=== PATIENT | male | born 1985 | race Caucasian/White ===

== ENCOUNTER 2019-09-08 14:15 | Emergency (ER) | payer BC, MEDICAID ==
[2019-09-08] MEDS ORDERED: Ketorolac 60 MG/2 ML SDV IM ONE (15:38)
--- NOTE | 2019-09-08 16:02 | EDM.PDOC ---
ED HPI GENERAL MEDICAL PROBLEM - General Chief Complaint: Back Pain or Injury Stated Complaint: BACK PAIN Time Seen by Provider: 09/08/19 15:59 Source of Information: Reports: Patient History Limitations: Reports: No Limitations - History of Present Illness INITIAL COMMENTS - FREE TEXT/NARRATIVE: HISTORY AND PHYSICAL: History of present illness: Patient is a 34-year-old male who presents to the emergency room today with complaints of low lumbar back pain. He states on Friday he was bending over to pick something up the ground when he felt sudden sharp pain to the low lumbar back region. He states the pain has progressively gotten worse and is more bothersome when having to change positions. Pain does radiate to the left gluteus and posterior thigh. Offers no systemic complaints at this time. Denies any GI or symptoms. Review of systems: As per history of present illness and below otherwise all systems reviewed and negative. Past medical history: As per history of present illness and as reviewed below otherwise noncontributory. Surgical history: As per history of present illness and as reviewed below otherwise noncontributory. Social history: See social history for further information Family history: As per history of present illness and as reviewed below otherwise noncontributory. Physical exam: General: Well-developed and well-nourished 34-year-old male. Alert and oriented. Nontoxic appearing and in no acute distress. HEENT: Atraumatic, normocephalic, pupils equal and reactive bilaterally, negative for conjunctival pallor or scleral icterus, mucous membranes moist, trachea midline. No drooling or trismus noted. No meningeal signs. No hot potato voice noted. Lungs: Clear to auscultation, breath sounds equal bilaterally, chest nontender. Heart: S1S2, regular rate and rhythm without overt murmur Abdomen: Soft, nondistended, nontender. Negative for masses. Negative for costovertebral tenderness. Pelvis is stable and nontender. C-spine/Back: No pinpoint vertebral tenderness upon palpation. No crepitus, step -offs or obvious deformities. Patient is ambulatory into the emergency room without difficulty or deficit. Able to rock back on heels and walk on toes. Denies any urinary or fecal incontinence. Denies any numbness, tingling or saddle paresthesia. Skin: Intact, warm, dry. No lesions or rashes noted. Extremities: Atraumatic, moves all extremities per self without difficulty or deficits, negative for cords or calf pain. Neurovascular unremarkable. Neuro: Awake, alert, oriented. Cranial nerves II through XII unremarkable. Cerebellum unremarkable. Motor and sensory unremarkable throughout. Exam nonfocal. Notes: X-ray shows mild disc space narrowing at L5-S1. Otherwise unremarkable. Medication and supportive care measures were reviewed and discussed. Voices understanding and is agreeable to plan of care. Denies any further questions or concerns at this time. Diagnostics: Lumbar x-ray Therapeutics: Toradol Prescription: Diclofenac and Flexeril Impression: Lumbago Plan: 1. The medication you received today does cause drowsiness, so do not drive for the remaining day 2. When resting please lay on a flat firm surface. Limit your immobility to prevent muscle stiffness. Get up to ambulate/move around/gentle stretching multiple times throughout the day. May alternate heat and ice to the painful areas 3. Tylenol as needed for back pain. Otherwise take the prescribed Flexeril and diclofenac as directed. Diclofenac is an anti-inflammatory so do not take any additional NSAIDs with this medication, such as ibuprofen or Aleve. Flexeril as a muscle relaxant, this medication may cause drowsiness a do not take it will driving her needing to be functioning outside of the house. 4. Please follow-up with your primary care provider as we discussed. Return to the ED as needed and as discussed. Definitive disposition and diagnosis as appropriate pending reevaluation and review of above. lower back Pain Score (Numeric/FACES): 5 - Related Data Allergies Allergy/AdvReac Type Severity Reaction Status Date / Time bee pollen Allergy Difficulty Verified 09/08/19 15:13 Breathing cat dander Allergy Sneezing Verified 09/08/19 15:13 Home Meds: Home Meds . [No Known Home Meds] 09/08/19 [History] Past Medical History - Infectious Disease History Infectious Disease History: Reports: Chicken Pox - Past Surgical History GI Surgical History: Reports: Hernia, Inguinal Social & Family History - Family History Family Medical History: Noncontributory - Tobacco Use Smoking Status *Q: Never Smoker - Recreational Drug Use Recreational Drug Use: No ED ROS GENERAL - Review of Systems Review Of Systems: Comprehensive ROS is negative, except as noted in HPI. ED EXAM,LOWER BACK PAIN/INJURY - Physical Exam Exam: See Below (See dictation) Course - Vital Signs Last Recorded V/S: Last Vital Signs Temp 97.9 F 09/08/19 15:10 Pulse 102 H 09/08/19 15:10 Resp 18 09/08/19 15:10 BP 145/77 H 09/08/19 15:10 Pulse Ox 95 09/08/19 15:10 - Orders/Labs/Meds Meds: Medications Discontinued Medications Generic Name Dose Route Start Last Admin Trade Name Kandace PRN Reason Stop Dose Admin Ketorolac Tromethamine 60 mg 09/08/19 15:38 Toradol IM 09/08/19 15:39 ONETIME ONE Departure - Departure Time of Disposition: 16:20 Disposition: Home, Self-Care 01 Clinical Impression: Lumbago with sciatica, left side Qualifiers: Chronicity: acute Back pain laterality: left Qualified Code(s): M54.42 - Lumbago with sciatica, left side - Discharge Information Instructions: Sciatica, [id number] Referrals: Kimberly Bowman MD [Primary Care Provider] - Forms: ED Department Discharge Additional Instructions: The following information is given to patients seen in the emergency department who are being discharged to home. This information is to outline your options for follow-up care. We provide all patients seen in our emergency department with a follow-up referral. The need for follow-up, as well as the timing and circumstances, are variable depending upon the specifics of your emergency department visit. If you don't have a primary care physician on staff, we will provide you with a referral. We always advise you to contact your personal physician following an emergency department visit to inform them of the circumstance of the visit and for follow-up with them and/or the need for any referrals to a consulting specialist. The emergency department will also refer you to a specialist when appropriate. This referral assures that you have the opportunity for follow-up care with a specialist. All of these measure are taken in an effort to provide you with optimal care, which includes your follow-up. Under all circumstances we always encourage you to contact your private physician who remains a resource for coordinating your care. When calling for follow-up care, please make the office aware that this follow-up is from your recent emergency room visit. If for any reason you are refused follow-up, please contact the [facility] Emergency Department at and asked to speak to the emergency department charge nurse. JANET [facility] [address] [place] [address] [facility] [address] [place] [address] 1. May alternate heat and ice to the painful areas 2. When resting please lay on a flat firm surface. Limit your immobility to prevent muscle stiffness. Get up to ambulate/move around/gentle stretching multiple times throughout the day. 3. Tylenol as needed for back pain. Otherwise take the prescribed Flexeril and diclofenac as directed. Diclofenac is an anti-inflammatory so do not take any additional NSAIDs with this medication, such as ibuprofen or Aleve. Flexeril as a muscle relaxant, this medication may cause drowsiness a do not take it will driving her needing to be functioning outside of the house. 4. Please follow-up with your primary care provider as we discussed. Return to the ED as needed and as discussed.
--- NOTE | 2019-09-08 16:17 | CR ---
EXAM DATE: 09/08/19 PATIENT'S AGE: 34 Lumbar spine: AP, lateral and coned-down lateral view centered to the lumbosacral junction were obtained. Comparison: No prior lumbar spine imaging. Mild disc space narrowing is noted at L5-S1. Other disc spaces are maintained. Vertebral body heights are maintained. Pedicles are intact. Visualized transverse and spinous processes are intact. No subluxation or fracture is seen. Impression: 1. Mild disc space narrowing at L5-S1. 2. Three view lumbar spine study is otherwise unremarkable. Diagnostic code #2 Report Signed by Proxy. SHANTANU
[2019-09-08] MEDS ORDERED: methylPREDNISolone Sodium Succinate 125 MG/2 ML SDV IM ONE (16:21)
== END 2019-09-08 17:00 | disposition home or self-care (01) ==
LOC: MW.ED 14:15
DX: M54.42 Lumbago with sciatica, left side (principal); Z91.030 Bee allergy status; Z91.048 Other nonmedicinal substance allergy status
CPT/HCPCS: 72100; 96372; 99283; J1885; J2930

== ENCOUNTER 2021-10-14 11:36 | Emergency (ER) | payer BC ==
--- NOTE | 2021-10-14 12:44 | EDM.PDOC ---
ED HPI GENERAL MEDICAL PROBLEM - General Chief Complaint: Genitourinary Problem Stated Complaint: BLOODY URINE/FREQUENT URINATION Time Seen by Provider: 10/14/21 11:41 Source of Information: Reports: Patient History Limitations: Reports: No Limitations - History of Present Illness INITIAL COMMENTS - FREE TEXT/NARRATIVE: HISTORY AND PHYSICAL: History of present illness: Patient is a 36-year-old male who presents today with concern of hematuria and increased urinary frequency since last night. Patient states he is having to use the restroom every 2-3 hours and states that the last time he urinated at home, he noticed a small amount of blood in his urine so came here to the emergency room. Patient states in general he did not feel well yesterday and states he felt tired/rundown and achy states that he did not have a fever or chills. Patient states he did have some mild back discomfort last night but this has resolved today. Patient states he is in a monogamous relationship and has been so for many years and is not concerned of sexually transmitted infection. Patient denies any penile drainage or testicular pain. Patient denies any health history. Patient denies fever, chills, chest pain, shortness of breath, or cough. Denies headache, neck stiff ness, change in vision, syncope, or near syncope. Denies nausea, vomiting, abdominal pain, diarrhea, constipation, or dysuria. Has not noted any blood in urine or stool. Patient has been eating and drinking appropriately. Review of systems: As per history of present illness and below otherwise all systems reviewed and negative. Past medical history: As per history of present illness and as reviewed below otherwise noncontributory. Surgical history: As per history of present illness and as reviewed below otherwise noncontributory. Social history: See social history for further information Family history: As per history of present illness and as reviewed below otherwise noncontributory. Physical exam: General: Patient is alert, oriented, and in no acute distress. Patient sitting comfortably on exam table. Vitals stable and reviewed by me. HEENT: Atraumatic, normocephalic, pupils equal and reactive bilaterally, negative for conjunctival pallor or scleral icterus, mucous membranes moist, throat clear, neck supple, nontender, trachea midline. No drooling or trismus noted. No meningeal signs. No hot potato voice noted. Lungs: Clear to auscultation, breath sounds equal bilaterally, chest nontender. Heart: S1S2, regular rate and rhythm without overt murmur Abdomen: Soft, nondistended, nontender. Negative for masses or hepatosplenomegaly. Negative for costovertebral tenderness. Pelvis: Stable nontender. Genitourinary: Deferred. Rectal: Deferred. Skin: Intact, warm, dry. No lesions or rashes noted. Extremities: Atraumatic, negative for cords or calf pain. Neurovascular unremarkable. Neuro: Awake, alert, oriented. Cranial nerves II through XII unremarkable. Cerebellum unremarkable. Motor and sensory unremarkable throughout. Exam nonfocal. Medical Decision Making: Patient is an otherwise healthy 36-year-old male who presents emergency room today with concern of hematuria, and increased urinary frequency since last night. Upon arrival to the ED, patient is vitally stable and well-appearing on exam. Patient does not have any abdominal tenderness or CVA tenderness on exam. Exam is unremarkable. Will obtain urinalysis, gonorrhea and chlamydia, basic lab work, abd/pelvic ct w.o cont and reassess patient. CBC does show mild leukocytosis at 13.41, otherwise mild derangements of CBC unremarkable. CMP mild derangements are unremarkable. Urinalysis does show too numerous to count red blood cells, too numerous to count white blood cells with positive nitrate and positive leukocyte Estrace concerning for acute cystitis. 1 dose of IM Rocephin given here in the emergency room. Abdominal pelvic CT scan shows no acute findings in the abdomen or pelvis. No renal calculi or hydronephrosis. Splenomegaly. Fatty liver. All incidental findings of imaging today discussed with patient importance to have this followed up with a primary care provider. Upon reevaluation of patient, he remains vitally stable and comfortable throughout stay in ED. Patient continues to state that he is in a monogamous relationship and does not have anal intercourse. Gonorrhea and chlamydia is pending. Will treat patient with ciprofloxacin and follow urine culture/gonorrhea and chlamydia. Strict return precautions thoroughly discussed with patient. Discussed importance for close follow-up with her primary care provider. Voices understanding and is agreeable to plan of care. Denies any further questions or concerns at this time. Diagnostics: CBC, CMP, UA, G&C, Lipase, Abd/pelvic CT w/o cont, urine culture Therapeutics: Rocephin IM Prescription: Ciprofloxacin Impression: Urinary tract infection Plan: 1. Take medication as prescribed. You can alternate ibuprofen and Tylenol as directed for pain and discomfort. 2. Follow-up with a primary care provider as discussed. Return to the ED as needed and as discussed. Definitive disposition and diagnosis as appropriate pending reevaluation and review of above. Bilateral Lower Back Pain Score (Numeric/FACES): 2 - Related Data Allergies Allergy/AdvReac Type Severity Reaction Status Date / Time bee pollen Allergy Difficulty Verified 10/14/21 11:57 Breathing cat dander Allergy Sneezing Verified 10/14/21 11:57 Home Meds: Home Meds . [No Known Home Meds] 10/14/21 [History] Past Medical History - Past Health History Medical/Surgical History: Denies Medical/Surgical History - Infectious Disease History Infectious Disease History: Reports: Chicken Pox - Past Surgical History GI Surgical History: Reports: Hernia, Inguinal Social & Family History - Family History Family Medical History: No Pertinent Family History - Tobacco Use Tobacco Use Status *Q: Never Tobacco User - Recreational Drug Use Recreational Drug Use: No ED ROS GENERAL - Review of Systems Review Of Systems: Comprehensive ROS is negative, except as noted in HPI. ED EXAM, GENERAL - Physical Exam Exam: See Below (see dictation) Course - Vital Signs Last Recorded V/S: Last Vital Signs Temp 96.9 F 10/14/21 11:58 Pulse 96 10/14/21 11:58 Resp 17 10/14/21 11:58 BP 149/77 H 10/14/21 11:58 Pulse Ox 95 10/14/21 11:58 - Orders/Labs/Meds Orders: Active Orders 24 hr Category Date Time Status CHLAMYDIA AND GONORRHEA BY TMA Stat Lab 10/14/21 11:55 Received CULTURE URINE [MREF] Stat Lab 10/14/21 12:17 Received Labs: Laboratory Tests 10/14/21 10/14/21 10/14/21 Range/Units 12:17 12:45 12:45 WBC 13.41 H (4.0-11.0) K/uL RBC 4.96 (4.50-5.90) M/uL Hgb 15.4 (13.0-17.0) g/dL Hct 45.3 (38.0-50.0) % MCV 91.3 (80.0-98.0) fL MCH 31.0 (27.0-32.0) pg MCHC 34.0 (31.0-37.0) g/dL RDW Std Deviation 42.8 (28.0-62.0) fl RDW Coeff of Danny 13 (11.0-15.0) % Plt Count 160 (150-400) K/uL MPV 11.40 (7.40-12.00) fL Neut % (Auto) 75.7 (48.0-80.0) % Lymph % (Auto) 15.1 L (16.0-40.0) % Posey % (Auto) 8.1 (0.0-15.0) % Eos % (Auto) 1.0 (0.0-7.0) % Baso % (Auto) 0.1 (0.0-1.5) % Neut # (Auto) 10.1 H (1.4-5.7) K/uL Lymph # (Auto) 2.0 (0.6-2.4) K/uL Posey # (Auto) 1.1 H (0.0-0.8) K/uL Eos # (Auto) 0.1 (0.0-0.7) K/uL Baso # (Auto) 0.0 (0.0-0.1) K/uL Nucleated RBC % 0.0 /100WBC Nucleated RBCs # 0 K/uL Sodium 141 (136-148) mmol/L Potassium 4.0 (3.5-5.1) mmol/L Chloride 102 (98-107) mmol/L Carbon Dioxide 29.5 (21.0-32.0) mmol/L BUN 12 (7.0-18.0) mg/dL Creatinine 1.1 (0.8-1.3) mg/dL Est Cr Clr Drug Dosing 106.90 mL/min Estimated GFR (MDRD) > 60.0 ml/min Glucose 112 H (74-106) mg/dL Calcium 9.0 (8.5-10.1) mg/dL Total Bilirubin 0.8 (0.2-1.0) mg/dL AST 19 (15-37) IU/L ALT 29 (14-63) IU/L Alkaline Phosphatase 86 (46-116) U/L Total Protein 7.0 (6.4-8.2) g/dL Albumin 3.8 (3.4-5.0) g/dL Globulin 3.2 (2.6-4.0) g/dL Albumin/Globulin Ratio 1.2 (0.9-1.6) Lipase 70 L (73-393) U/L Urine Color DARK YELLOW Urine Appearance CLOUDY Urine pH 6.5 (5.0-8.0) Ur Specific Varina 1.025 (1.001-1.035) Urine Protein 100 H (NEGATIVE) mg/dL Urine Glucose (UA) NEGATIVE (NEGATIVE) mg/dL Urine Ketones NEGATIVE (NEGATIVE) mg/dL Urine Occult Blood LARGE H (NEGATIVE) Urine Nitrite POSITIVE H (NEGATIVE) Urine Bilirubin SMALL H (NEGATIVE) Urine Urobilinogen 0.2 (<2.0) EU/dL Ur Leukocyte Esterase MODERATE H (NEGATIVE) Urine RBC TOO NUMEROUS TO CT (0-2/HPF) Urine WBC TO NUMEROUS TO COUNT H (0-5/HPF) Ur Epithelial Cells OCCASIONAL (NONE-FEW) Urine Bacteria FEW (NEGATIVE) Meds: Medications Discontinued Medications Generic Name Dose Route Start Last Admin Trade Name Kandace PRN Reason Stop Dose Admin Ceftriaxone Sodium 1 gm 10/14/21 12:54 10/14/21 13:19 Ceftriaxone 1 Gm Vial IM 10/14/21 12:55 Not Given ONETIME ONE Ceftriaxone Sodium 1,000 mg/ 1 mls @ 1 mls/sec 10/14/21 13:03 10/14/21 13:18 Lidocaine HCl IM 10/14/21 13:04 1 mls/sec ONETIME ONE Administration Departure - Departure Time of Disposition: 14:48 Disposition: Home, Self-Care 01 Clinical Impression: Urinary tract infection - Discharge Information Referrals: PCP,None [Primary Care Provider] - Forms: ED Department Discharge Additional Instructions: The following information is given to patients seen in the emergency department who are being discharged to home. This information is to outline your options for follow-up care. We provide all patients seen in our emergency department with a follow-up referral. The need for follow-up, as well as the timing and circumstances, are variable depending upon the specifics of your emergency department visit. If you don't have a primary care physician on staff, we will provide you with a referral. We always advise you to contact your personal physician following an emergency department visit to inform them of the circumstance of the visit and for follow-up with them and/or the need for any referrals to a consulting specialist. The emergency department will also refer you to a specialist when appropriate. This referral assures that you have the opportunity for follow-up care with a specialist. All of these measure are taken in an effort to provide you with optimal care, which includes your follow-up. Under all circumstances we always encourage you to contact your private physician who remains a resource for coordinating your care. When calling for follow-up care, please make the office aware that this follow-up is from your recent emergency room visit. If for any reason you are refused follow-up, please contact the [facility] Emergency Department at and asked to speak to the emergency department charge nurse. [facility] [address] [place] [id number] [id number] 1. Take medication as prescribed. You can alternate ibuprofen and Tylenol as directed for pain and discomfort. 2. Follow-up with a primary care provider as discussed. Return to the ED as needed and as discussed. Sepsis Event Note (ED) - Evaluation Sepsis Screening Result: No Definite Risk - Focused Exam Vital Signs: Vital Signs Temp Pulse Resp BP Pulse Ox 10/14/21 11:58 96.9 F 96 17 149/77 H 95 - My Orders Last 24 Hours: My Active Orders 10/14/21 11:55 CHLAMYDIA AND GONORRHEA BY TMA Stat 10/14/21 12:17 CULTURE URINE [MREF] Stat - Assessment/Plan Last 24 Hours: My Active Orders 10/14/21 11:55 CHLAMYDIA AND GONORRHEA BY TMA Stat 10/14/21 12:17 CULTURE URINE [MREF] Stat
[2021-10-14] MEDS ORDERED: cefTRIAXone 1 GM Vial IM ONE (12:54)
[2021-10-14] MEDS ORDERED: cefTRIAXone 1,000 MG in Lidocaine 1% 1 ML IM ONE (13:03)
[2021-10-14 13:12] LABS: BLOOD UREA NITROGEN,BUN 12 mg/dL (7.0-18.0); CARBON DIOXIDE,CO2 29.5 mmol/L (21.0-32.0); CHLORIDE,CL 102 mmol/L (98-107); GLUCOSE RANDOM 112 mg/dL (74-106); LIPASE 70 U/L (73-393); SODIUM,NA 141 mmol/L (136-148)
--- NOTE | 2021-10-14 14:00 | CT ---
Indication: Hematuria Technique: Noncontrast CT abdomen and pelvis Comparison: No comparison Findings: Heart size normal. Fatty liver spleen is enlarged measuring 15 cm. Gallbladder pancreas unremarkable. Adrenal glands unremarkable no abdominal aortic aneurysm. No renal calculi and no hydronephrosis. Urinary bladder unremarkable. Bowel is unremarkable. Postsurgical changes of hernia repair. No suspicious bony lesions. Impression: 1. No acute findings in the abdomen or pelvis. No renal calculi or hydronephrosis. 2. Splenomegaly. Fatty liver. Please note that all CT scans at this facility use dose modulation, iterative reconstruction, and/or weight-based dosing when appropriate to reduce radiation dose to as low as reasonably achievable. Dictated by Анна Lira MD @ 10/14/2021 1:58:33 PM (Electronically Signed)
[2021-10-17 13:08] LABS: C.TRACHOMATIS BY TMA Negative (Negative); N.GONORRHOEAE BY TMA Negative (Negative)
== END 2021-10-14 15:45 | disposition home or self-care (01) ==
LOC: MW.ED 11:36
DX: N39.0 Urinary tract infection, site not specified (principal); Z91.030 Bee allergy status; Z91.048 Other nonmedicinal substance allergy status
CPT/HCPCS: 36415; 74176; 80053; 81001; 83690; 85025; 87086; 87491; 87591; 96372; 99284; J0696

== ENCOUNTER 2023-05-30 08:50 | Day surgery (SDC) | payer BC ==
[~2023-05-30 08:50] MED LIST: Lactated Ringers 1,000 ML IV SCH
[2023-05-30] MEDS ORDERED: droPERidol 5 MG/2 ML SDV IVPUSH PRN (10:00)
[2023-05-30] MEDS ORDERED: Metoclopramide 10 MG/2 ML SDV IVPUSH PRN (10:00)
[2023-05-30] MEDS ORDERED: Naloxone 0.4 MG/ML SDV IVPUSH PRN (10:00)
[2023-05-30] MEDS ORDERED: Ondansetron 4 MG/2 ML SDV IVPUSH PRN (10:00)
[2023-05-30] MEDS ORDERED: HYDROmorphone 1 MG/ML Syringe IVPUSH PRN (10:00)
[2023-05-30] MEDS ORDERED: Albuterol 0.083% 2.5 MG/3 ML Neb Soln NEB PRN (10:00)
[2023-05-30] MEDS ORDERED: Morphine 2 MG/ML SYRINGE IVPUSH PRN (10:00)
[2023-05-30] MEDS ORDERED: fentaNYL 50 MCG/ML SDV IVPUSH PRN (10:00)
[2023-05-30] MEDS ORDERED: Lidocaine 2% 5 ML SDV ONE (10:19)
[2023-05-30] MEDS ORDERED: Propofol 200 MG/20 ML SDV ONE ×2 (10:20→10:30)
== END 2023-05-30 11:15 | disposition home or self-care (01) ==
LOC: MW.SDS 08:50
PROVIDERS: ATTEND Surgery
DX: R19.5 Other fecal abnormalities (principal); J40 Bronchitis, not specified as acute or chronic; Z91.09 Other allergy status, other than to drugs and biological substances; Z91.030 Bee allergy status; Z87.891 Personal history of nicotine dependence; Z79.899 Other long term (current) drug therapy
CPT/HCPCS: 45380; J2704; J7120; 00811; J3490